=== PATIENT | male | born 1980 | race Caucasian/White ===

== ENCOUNTER → 2019-08-04 | Outpatient (CLI) | payer BC ==
[2019-08-04 19:24] LABS: Prolactin 6.5 ng/mL (2.1-17.7)
[2019-08-04 19:36] LABS: Follicle Stimulating Hormone <0.3 mIU/mL; Luteinizing Hormone <0.1 mIU/mL
== END | disposition home or self-care (01) ==
LOC: LABWHC1 14:26
PROVIDERS: ATTEND Urology
DX: N52.9 Male erectile dysfunction, unspecified (principal); E29.1 Testicular hypofunction
CPT/HCPCS: 36415; 83001; 83002; 84146; 84443

== ENCOUNTER 2021-01-10 16:47 | Emergency (ER) | payer BC, OTHER ==
[2021-01-10 17:04] VITALS: BP 130/75; PULSE 78; RESP 20; TEMP 97.9
[2021-01-10] MEDS ORDERED: PROPARACAINE 0.5% OPHTH DROPS 15 ML BTL RIGHT EYE STA (17:46)
[2021-01-10] MEDS ORDERED: FLUORESCEIN STRIPS 1 MG STRIP RIGHT EYE ONE (17:46)
--- NOTE | 2021-01-10 18:36 | ED ---
Eye Problem HPI - General Chief complaint: Eye Problems Stated complaint: [facility]-dirt/metal in eye Time Seen by Provider: 01/10/21 17:31 Source: patient Mode of arrival: ambulatory Limitations: no limitations - History of Present Illness Initial comments: Patient is a 40-year-old male presenting to the emergency Department with complaints of a possible foreign body in his right eye. Patient states he feels like something flew in it while he was at work today. It happened about an hour or 2 prior to arrival. Patient states he sometimes wears contacts but has not worn them the past few weeks. He denies any visual changes, no severe eye pain just some irritation. He has no further complaints at this time. - Related Data Previous Rx's Medication Instructions Recorded Erythromycin Ophth Oint [Romycin 1 applic RIGHT EYE QID #1 tube 01/10/21 Ophth Oint] Allergies Allergy/AdvReac Type Severity Reaction Status Date / Time No Known Allergies Allergy Verified 01/10/21 18:32 Review of Systems ROS Statement: Those systems with pertinent positive or pertinent negative responses have been documented in the HPI. ROS Other: All systems not noted in ROS Statement are negative. Past Medical History Past Medical History: No Reported History History of Any Multi-Drug Resistant Organisms: None Reported Past Surgical History: Hernia Repair Past Psychological History: No Psychological Hx Reported Smoking Status: Never smoker Past Alcohol Use History: None Reported Past Drug Use History: None Reported General Exam - General Exam Comments Initial Comments: GENERAL: Patient is well-developed and well-nourished. Patient is nontoxic and in no acute distress. HEAD: Atraumatic, normocephalic. EYES: Pupils equal round and reactive to light, extraocular movements intact, sclera anicteric, conjunctiva are normal. Eyelids were unremarkable. There is no foreign body visible on exam, fluorescein stain revealed no acute abnormality. ENT: Nares patent, oropharynx clear without exudates. Moist mucous membranes. NECK: Normal range of motion, supple without lymphadenopathy or JVD. LUNGS: Unlabored respirations. Breath sounds clear to auscultation bilaterally and equal. No wheezes rales or rhonchi. HEART: Regular rate and rhythm without murmurs, rubs or gallops. ABDOMEN: Soft, nontender, normoactive bowel sounds. No guarding, no rebound. No masses appreciated. : Deferred MUSCULOSKELETAL: Normal extremities with adequate strength and normal range of motion, no pitting or edema. No clubbing or cyanosis. NEUROLOGICAL: Patient is alert and oriented x 3. Symmetrical smile. Normal speech, normal gait. PSYCH: Normal mood, normal affect. SKIN: Warm, Dry, normal turgor, no rashes or lesions noted Limitations: no limitations Course Vital Signs 01/10/21 17:00 Temperature 97.9 F Pulse Rate 78 Respiratory 20 Rate Blood Pressure 130/75 O2 Sat by Pulse 96 Oximetry Medical Decision Making - Medical Decision Making Patient is a 40-year-old male here with complaints of possible foreign body of his right eye. His happened at work. Upon my examination, there is no obvious foreign body, fluorescein stain did not reveal any foreign body, no abrasions of the eye. Patient did have some relief with the proparacaine. I discussed with patient that I do not see evidence for an abrasion or foreign body at this time. I recommended following up with his eye doctor. He is stable for discharge. I will start him on erythromycin ointment for possibility of a small abrasion that I am not seeing today. Patient is in agreement this plan of care. Disposition Clinical Impression: Irritation of right eye Disposition: HOME SELF-CARE Condition: Stable Instructions (If sedation given, give patient instructions): Eye Foreign Body (ED) Additional Instructions: Please return to the Emergency Department if symptoms worsen or any other concerns. There is no visible foreign body on the eye at this time, recommend starting antibiotic ointment for possible small abrasion. Follow-up with your eye doctor in 1-3 days. Prescriptions: Erythromycin Ophth Oint [Romycin Ophth Oint] 1 applic RIGHT EYE QID #1 tube Is patient prescribed a controlled substance at d/c from ED?: No Referrals: Sai Ramirez MD [Primary Care Provider] - 1-2 days Time of Disposition: 18:35
== END 2021-01-10 18:42 | disposition home or self-care (01) ==
LOC: EC 16:47
DX: H57.89 Other specified disorders of eye and adnexa (principal)
CPT/HCPCS: 99283

== ENCOUNTER 2021-07-25 11:09 | Emergency (ER) | payer BC, OTHER ==
[2021-07-25 11:30] VITALS: RESP 18
[2021-07-25] MEDS ORDERED: LIDOCAINE 1% INJ 10MG/ML (20 ML MDV) SQ ONE (13:13)
--- NOTE | 2021-07-25 14:01 | ED ---
Head Injury HPI - General Chief complaint: Head Injury Stated complaint: [facility]- head injury Time Seen by Provider: 07/25/21 12:56 Source: patient, RN notes reviewed Mode of arrival: ambulatory Limitations: no limitations - History of Present Illness Initial comments: She is a 40-year-old male that presents to the emergency department with a 4 cm head laceration. He notes he was grinding at work when the abrasive grinder follows hands and told him in the forehead. Patient notes he did not lose consciousness. Patient notes that he was seen at at bedtime and was referred here for laceration repair. Patient denied any other issues or complaints. He notes he is up-to-date on his tetanus shot. He denied chest pain first breath headache nausea vomiting diarrhea constipation fever fatigue chills change in vision blurry vision. - Related Data Home Medications Medication Instructions Recorded Confirmed Benzonatate [Tessalon Perles] 100 mg PO Q6H 07/25/21 07/25/21 Dm/Acetaminophen/Doxylamine [Vicks 30 ml PO Q6H PRN 07/25/21 07/25/21 Nyquil Cold-Flu Liquid] Previous Rx's Medication Instructions Recorded Cephalexin [Keflex] 500 mg PO Q6HR #40 cap 07/25/21 Allergies/Adverse reactions: Allergies Allergy/AdvReac Type Severity Reaction Status Date / Time No Known Allergies Allergy Verified 07/25/21 13:24 Review of Systems ROS Statement: Those systems with pertinent positive or pertinent negative responses have been documented in the HPI. ROS Other: All systems not noted in ROS Statement are negative. Past Medical History Past Medical History: No Reported History History of Any Multi-Drug Resistant Organisms: None Reported Past Surgical History: Hernia Repair Past Psychological History: No Psychological Hx Reported Smoking Status: Never smoker Past Alcohol Use History: None Reported Past Drug Use History: None Reported General Exam Limitations: no limitations General appearance: alert, in no apparent distress Head exam: Present: normocephalic, normal inspection. Absent: atraumatic (4 cm laceration to middle forehead. Minimal bleeding. Margins well approximated.) Eye exam: Present: normal appearance, PERRL, EOMI. Absent: scleral icterus, conjunctival injection, periorbital swelling ENT exam: Present: normal exam, mucous membranes moist Neck exam: Present: normal inspection Respiratory exam: Present: normal lung sounds bilaterally. Absent: respiratory distress, wheezes, rales, rhonchi, stridor Cardiovascular Exam: Present: regular rate, normal rhythm, normal heart sounds. Absent: systolic murmur, diastolic murmur, rubs, gallop, clicks GI/Abdominal exam: Present: soft, normal bowel sounds. Absent: distended, tenderness, guarding, rebound, rigid Extremities exam: Present: normal inspection, full ROM, normal capillary refill. Absent: tenderness, pedal edema, joint swelling, calf tenderness Neurological exam: Present: alert, oriented X3 Psychiatric exam: Present: normal affect, normal mood Skin exam: Present: warm, dry, intact, normal color. Absent: rash Course Vital Signs 07/25/21 11:27 Temperature 98.4 F Pulse Rate 79 Respiratory 18 Rate Blood Pressure 145/81 O2 Sat by Pulse 97 Oximetry Procedures - Laceration Laceration #1 Consent Obtained: verbal consent Indication: laceration Site: face (Forehead) Size (cm): 4 Description: linear Depth: simple, single layer Anesthetic Used: lidocaine 1% Anesthesia Technique: local infiltration Amount (mls): 5 Pre-repair: irrigated extensively Type of Sutures: nylon Size of Sutures: 5-0 Number of Sutures: 5 Technique: simple, interrupted Patient Tolerated Procedure: well, no complications Medical Decision Making - Medical Decision Making 40-year-old male with laceration of forehead from a abrasive grinder accident work. Lidocaine ordered. Patient is up-to-date on tetanus. Antibiotics sent to pharmacy. Patient tolerated sutures well. Case discussed with Dr. Cohen, patient discharge home. Disposition Clinical Impression: Laceration Disposition: HOME SELF-CARE Condition: Stable Instructions (If sedation given, give patient instructions): Laceration (ED), Care For Your Stitches (ED) Additional Instructions: Please return to the Emergency Department if symptoms worsen or any other concerns. Follow-up with primary care 1-2 days. Please return in 7-10 days to have sutures removed. Keep area clean and dry. Prescriptions: Cephalexin [Keflex] 500 mg PO Q6HR #40 cap Is patient prescribed a controlled substance at d/c from ED?: No Referrals: Sai Ramirez MD [Primary Care Provider] - 1-2 days Time of Disposition: 14:01
[2021-07-25 14:17] VITALS: TEMP 97.8
[2021-07-25 14:21] VITALS: BP 115/78; PULSE 73
== END 2021-07-25 14:15 | disposition home or self-care (01) ==
LOC: EC 11:09
DX: S01.81XA Laceration without foreign body of other part of head, initial encounter (principal); W29.8XXA Contact with other powered hand tools and household machinery, initial encounter; Y92.69 Other specified industrial and construction area as the place of occurrence of the external cause; Y99.0 Civilian activity done for income or pay
CPT/HCPCS: 99282; 12013; J2001

== ENCOUNTER 2023-08-31 19:24 | Emergency (ER) | payer OTHER ==
[2023-08-31] MEDS ORDERED: methylPREDNISolone SOD SUCCI 125 MG/2 ML VIAL IM ONE (19:30)
--- NOTE | 2023-08-31 19:30 | ED ---
General Adult HPI - General Source: patient, RN notes reviewed Mode of arrival: ambulatory Limitations: no limitations <Antonia Nash - Last Filed: 08/31/23 19:30> <Justin Holliday - Last Filed: 08/31/23 23:10> - General Chief complaint: Allergic Reaction Stated complaint: Allergic Reaction Time Seen by Provider: 08/31/23 19:30 - History of Present Illness Initial comments: 43 male presents the emergency department with a chief possible ALLERGIC reaction. Patient reports having shrimp approximately 45 minutes prior to arrival. He reports scratchiness and vomiting. He did take Benadryl prior to arrival (Antonia Nash) 43-year-old male with a prior history of shellfish ALLERGY who apparently shrimp and crab prior to arrival and started developing difficulty swallowing he also took some oral Benadryl prior to coming here he has been vomiting since. He started the before I saw him received IM Solu-Medrol 125 mg. Other than difficulty swallowing and talking he has no other complaints no rash no overt shortness breath fevers chills sweats. (Justin Holliday) - Related Data Home Medications Medication Instructions Recorded Confirmed Benzonatate [Tessalon Perles] 100 mg PO Q6H 07/25/21 07/25/21 Dm/Acetaminophen/Doxylamine [Vicks 30 ml PO Q6H PRN 07/25/21 07/25/21 Nyquil Cold-Flu Liquid] Previous Rx's Medication Instructions Recorded Cephalexin [Keflex] 500 mg PO Q6HR #40 cap 07/25/21 Ibuprofen [Motrin] 800 mg PO Q8HR PRN #30 tab 03/15/23 predniSONE [Deltasone] 20 mg PO BID #10 tab 08/31/23 Allergies Allergy/AdvReac Type Severity Reaction Status Date / Time bee venom protein (honey bee) Allergy Unknown Verified 08/31/23 19:27 Review of Systems ROS Other: All systems not noted in ROS Statement are negative. <Antonia Nash - Last Filed: 08/31/23 19:30> ROS Other: All systems not noted in ROS Statement are negative. <Justin Holliday - Last Filed: 08/31/23 23:10> ROS Statement: Those systems with pertinent positive or pertinent negative responses have been documented in the HPI. Past Medical History Past Medical History: No Reported History History of Any Multi-Drug Resistant Organisms: None Reported Past Surgical History: Hernia Repair Past Psychological History: No Psychological Hx Reported Smoking Status: Never smoker Past Alcohol Use History: None Reported Past Drug Use History: None Reported <Antonia Nash - Last Filed: 08/31/23 19:30> General Exam Limitations: no limitations <Antonia Nash - Last Filed: 08/31/23 19:30> General appearance: alert, anxious Head exam: Present: atraumatic, normocephalic, normal inspection Eye exam: Present: normal appearance, PERRL, EOMI. Absent: scleral icterus, conjunctival injection, periorbital swelling ENT exam: Present: other (Some posterior pharyngeal edema noted uvula is midline. He does demonstrate some difficulty with speech) Neck exam: Present: normal inspection, other (Stridor JVD or bruits). Absent: tenderness, meningismus, lymphadenopathy Respiratory exam: Present: normal lung sounds bilaterally. Absent: respiratory distress, wheezes, rales, rhonchi, stridor Cardiovascular Exam: Present: regular rate, normal rhythm, normal heart sounds. Absent: systolic murmur, diastolic murmur, rubs, gallop, clicks GI/Abdominal exam: Present: soft, normal bowel sounds. Absent: distended, tenderness, guarding, rebound, rigid Extremities exam: Present: normal inspection, full ROM, normal capillary refill. Absent: tenderness, pedal edema, joint swelling, calf tenderness Back exam: Present: normal inspection Neurological exam: Present: alert, oriented X3, CN II-XII intact Psychiatric exam: Present: normal affect, normal mood Skin exam: Present: warm, dry, intact, normal color. Absent: rash <Justin Holliday - Last Filed: 08/31/23 23:10> - General Exam Comments Initial Comments: Visual Physical Exam Vital signs reviewed General: Well-appearing, nontoxic, no acute distress. Head: Normocephalic, atraumatic Eyes: PERRLA, EOMI ENT: Airway patent Chest: Nonlabored breathing Skin: No visual rash, normal skin tone Neuro: Alert and oriented 3 Musculoskeletal: No gross abnormalities (Antonia Nash) Is a well-developed well-nourished awake alert oriented 3 male he is demonstrating some distress with difficulty with speech and swallowing. No overt drooling however no audible wheezing no rashes demonstrated at this time (MgJustin) Course <Justin Holliday - Last Filed: 08/31/23 23:10> Vital Signs 08/31/23 08/31/23 19:27 21:58 Temperature 98.2 F Pulse Rate 69 72 Respiratory 18 18 Rate Blood Pressure 144/82 132/83 O2 Sat by Pulse 97 97 Oximetry - Reevaluation(s) Reevaluation #1: 08/31/23 20:01 Patient reexamination demonstrated no worsening of his situation he states he is awake and alert. (MgJustin) Reevaluation #2: 08/31/23 21:33 I did reevaluate patient twice so far he states he is not feeling much better however his voices sound much improved. No stridor no JVD no bruits no wheezing. He still nauseated and has vomited once. (MgJustin) Medical Decision Making <Antonia Nash - Last Filed: 08/31/23 19:30> <MgJustin - Last Filed: 08/31/23 23:10> - Medical Decision Making I performed the quick note portion of this exam, verbal signature Antonia Nash PA-C (Antonia Nash) I did reevaluate patient on multiple occasions he was still feeling somewhat nauseated however reevaluation his oropharynx appears much improved his voice appears and sounds much improved no stridor JVD or bruits no wheezing. Patient will be discharged home he was cautioned about drinking or eating hot foods for the next 24 hours or so. He was encouraged to drink cool or cold beverages. He'll be discharged with a prescription for prednisone and we did discuss getting Benadryl and Pepcid [id number]. He is in agreement with this. Was pt. sent in by a medical professional or institution ([facility], ALLERGIST IMMUNOLOGIST, urgent care, hospital, or halfway...) When possible be specific @ -[No] Did you speak to anyone other than the patient for history (EMS, parent, family, police, friend...)? What history was obtained from this source @ -[Zenia] Did you review nursing and triage notes (agree or disagree)? Why? @ -[I reviewed and agree with nursing and triage notes] Were old charts reviewed (outside hosp., previous admission, EMS record, old EKG, old radiological studies, urgent care reports/EKG's, halfway records)? Report findings @ -[No old charts were reviewed] Differential Diagnosis (chest pain, altered mental status, abdominal pain women, abdominal pain men, vaginal bleeding, weakness, fever, dyspnea, syncope, headache, dizziness, GI bleed, back pain, seizure, CVA, palpatations, mental health, musculoskeletal)? @ -[Sea food ALLERGY] EKG interpreted by me (3pts min.). @ -[Not done] X-rays interpreted by me (1pt min.). @ -[None done] CT interpreted by me (1pt min.). @ -[None done] U/S interpreted by me (1pt. min.). @ -[None done] What testing was considered but not performed or refused? (CT, X-rays, U/S, labs)? Why? @ -[None] What meds were considered but not given or refused? Why? @ -[None] Did you discuss the management of the patient with other professionals (professionals i.e. , PA, ALLERGIST IMMUNOLOGIST, lab, RT, psych nurse, manager social services, poultry farmer, teacher, sea air land officer, case work aide)? Give summary @ -[No] Was smoking cessation discussed for >3mins.? @ -[No] Was critical care preformed (if so, how long)? @ -[No] Were there social determinants of health that impacted care today? How? (Homelessness, low income, unemployed, alcoholism, drug addiction, transportation, low edu. Level, literacy, decrease access to med. care, halfway, rehab)? @ -[No] Was there de-escalation of care discussed even if they declined (Discuss DNR or withdrawal of care, Hospice)? DNR status @ -[No] What co-morbidities impacted this encounter? (DM, HTN, Smoking, COPD, CAD, Cancer, CVA, ARF, Chemo, Hep., AIDS, mental health diagnosis, sleep apnea, morbid obesity)? @ -Prior shellfish ALLERGIES] Was patient admitted / discharged? Hospital course, mention meds given and route, prescriptions, significant lab abnormalities, going to OR and other pertinent info. @ -[hospital course patient was discharged home with prescriptions for prednisone and [id number] Benadryl and Pepcid.] Undiagnosed new problem with uncertain prognosis? @ -[No] Drug Therapy requiring intensive monitoring for toxicity (Heparin, Nitro, Insulin, Cardizem)? @ -[No] Were any procedures done? @ -[No] Diagnosis/symptom? @ -[Acute ALLERGIC reaction] Acute, or Chronic, or Acute on Chronic? @ -[Acute] Uncomplicated (without systemic symptoms) or Complicated (systemic symptoms)? @ -[default] Side effects of treatment? @ -[No] Exacerbation, Progression, or Severe Exacerbation? @ -[Transformation] Poses a threat to life or bodily function? How? (Chest pain, [place], [place], pneumonia, PE, COPD, DKA, ARF, appy, cholecystitis, CVA, Diverticulitis, Homicidal, Suicidal, threat to staff... and all critical care pts) @ -[Acute ALLERGIC reaction] (Justin Holliday) Disposition <Antonia Nash - Last Filed: 08/31/23 19:30> Is patient prescribed a controlled substance at d/c from ED?: No Decision Date: 08/31/23 Decision Time: 23:10 <Justin Holliday - Last Filed: 08/31/23 23:10> Clinical Impression: Acute allergic reaction, Angioedema Disposition: HOME SELF-CARE Condition: Good Instructions (If sedation given, give patient instructions): Food Allergy (ED) Additional Instructions: [id number] Benadryl 25 mg every 6 hours as needed, [id number] Pepcid 20 mg twice a day as needed. No hot food or beverages for the next 24 hours return if any problems with recurrent symptoms otherwise follow-up with her doctor. Prescriptions: predniSONE [Deltasone] 20 mg PO BID #10 tab Referrals: None,Stated [Primary Care Provider] - 1-2 days
[2023-08-31 19:45] VITALS: RESP 18
[2023-08-31] MEDS ORDERED: diphenhydrAMINE 50 MG/ML 1 ML VIAL IVP STA (19:57)
[2023-08-31] MEDS ORDERED: ONDANSETRON 4 MG/2 ML VIAL IVP STA (19:57)
[2023-08-31] MEDS ORDERED: FAMOTIDINE 20 MG/2 ML VIAL IV STA ×2 (19:57→21:32)
[2023-08-31] MEDS ORDERED: methylPREDNISolone SOD SUCCI 125 MG/2 ML VIAL IV STA ×2 (21:32→23:03)
[2023-08-31] MEDS ORDERED: METOCLOPRAMIDE 5 MG/ML 2 ML VIAL IVP STA (21:32)
[2023-09-01 00:25] VITALS: BP 128/76; PULSE 85; TEMP 98
== END 2023-08-31 23:54 | disposition home or self-care (01) ==
LOC: EC 19:24
DX: T78.3XXA Angioneurotic edema, initial encounter (principal); Z91.030 Bee allergy status
CPT/HCPCS: 99283; 96372; 96374; 96375 ×4; 96376 ×2; J1200; J2765; J2930; J2405; J3490

== ENCOUNTER 2023-09-11 09:44 | Emergency (ER) | payer BC, OTHER ==
--- NOTE | 2023-09-11 09:58 | ED ---
ENT HPI - General Chief complaint: ENT Stated complaint: Ear Pain Time Seen by Provider: 09/11/23 09:57 Source: patient, RN notes reviewed Mode of arrival: ambulatory Limitations: no limitations - History of Present Illness Initial comments: 43-year-old male presents emergency Department with chief complaint of left ear pain. Patient states that very sensitive, hurts to touch. Patient doesn't drainage no trauma patient offers no other complaints. - Related Data Home Medications Medication Instructions Recorded Confirmed Benzonatate [Tessalon Perles] 100 mg PO Q6H 07/25/21 07/25/21 Dm/Acetaminophen/Doxylamine [Vicks 30 ml PO Q6H PRN 07/25/21 07/25/21 Nyquil Cold-Flu Liquid] Previous Rx's Medication Instructions Recorded Cephalexin [Keflex] 500 mg PO Q6HR #40 cap 07/25/21 Ibuprofen [Motrin] 800 mg PO Q8HR PRN #30 tab 03/15/23 predniSONE [Deltasone] 20 mg PO BID #10 tab 08/31/23 Amoxic-Pot Clav 875-125Mg 1 tab PO Q12HR #20 tab 09/11/23 [Augmentin 875-125] Allergies Allergy/AdvReac Type Severity Reaction Status Date / Time bee venom protein (honey bee) Allergy Unknown Verified 09/11/23 09:51 shellfish derived [Shellfish] Allergy Anaphylaxis Verified 09/11/23 09:51 Review of Systems ROS Statement: Those systems with pertinent positive or pertinent negative responses have been documented in the HPI. ROS Other: All systems not noted in ROS Statement are negative. Past Medical History Past Medical History: No Reported History History of Any Multi-Drug Resistant Organisms: None Reported Past Surgical History: Hernia Repair Additional Past Surgical History / Comment(s): wisdom teeth, legaments right leg. Past Psychological History: No Psychological Hx Reported Smoking Status: Never smoker Past Alcohol Use History: Occasional Past Drug Use History: None Reported General Exam Limitations: no limitations General appearance: alert, in no apparent distress Head exam: Present: atraumatic, normocephalic, normal inspection Eye exam: Present: normal appearance, PERRL, EOMI. Absent: scleral icterus, conjunctival injection, periorbital swelling ENT exam: Present: normal oropharynx, mucous membranes moist. Absent: normal exam, TM's normal bilaterally (Left erythematous) Neck exam: Present: normal inspection, full ROM. Absent: tenderness, meningismus, lymphadenopathy Respiratory exam: Present: normal lung sounds bilaterally. Absent: respiratory distress, wheezes, rales, rhonchi, stridor Cardiovascular Exam: Present: regular rate, normal rhythm, normal heart sounds. Absent: systolic murmur, diastolic murmur, rubs, gallop, clicks Course Vital Signs 09/11/23 09:48 Temperature 98 F Pulse Rate 82 Respiratory 18 Rate Blood Pressure 136/81 O2 Sat by Pulse 98 Oximetry Medical Decision Making - Medical Decision Making Was pt. sent in by a medical professional or institution (, [facility], [facility], urgent care, hospital, or fdc...) When possible be specific @ -No Did you speak to anyone other than the patient for history (EMS, parent, family, police, friend...)? What history was obtained from this source @ -No Did you review nursing and triage notes (agree or disagree)? Why? @ -I reviewed and agree with nursing and triage notes Were old charts reviewed (outside hosp., previous admission, EMS record, old EKG, old radiological studies, urgent care reports/EKG's, fdc records)? Report findings @ -No old charts were reviewed Differential Diagnosis (chest pain, altered mental status, abdominal pain women, abdominal pain men, vaginal bleeding, weakness, fever, dyspnea, syncope, headache, dizziness, GI bleed, back pain, seizure, CVA, palpatations, mental health, musculoskeletal)? @ -[Otitis media, otitis externa EKG interpreted by me (3pts min.). @ -As above X-rays interpreted by me (1pt min.). @ -None done CT interpreted by me (1pt min.). @ -None done U/S interpreted by me (1pt. min.). @ -None done What testing was considered but not performed or refused? (CT, X-rays, U/S, labs)? Why? @ -None What meds were considered but not given or refused? Why? @ -None Did you discuss the management of the patient with other professionals (professionals i.e. [facility] Gentile, [facility], lab, RT, psych nurse, social services analyst, head men's tennis coach, teacher, custom protection officer, bottle caser)? Give summary @ -No Was smoking cessation discussed for >3mins.? @ -No Was critical care preformed (if so, how long)? @ -No Were there social determinants of health that impacted care today? How? (Homelessness, low income, unemployed, alcoholism, drug addiction, transportat ion, low edu. Level, literacy, decrease access to med. care, half-way, rehab)? @ -No Was there de-escalation of care discussed even if they declined (Discuss DNR or withdrawal of care, Hospice)? DNR status @ -No What co-morbidities impacted this encounter? (DM, HTN, Smoking, COPD, CAD, Cancer, CVA, ARF, Chemo, Hep., AIDS, mental health diagnosis, sleep apnea, morbid obesity)? @ -None Was patient admitted / discharged? Hospital course, mention meds given and route, prescriptions, significant lab abnormalities, going to OR and other pertinent info. @ -Discharge patient has left otitis media was started on oral antibiotics return parameters discussed. Undiagnosed new problem with uncertain prognosis? @ -No Drug Therapy requiring intensive monitoring for toxicity (Heparin, Nitro, Insulin, Cardizem)? @ -No Were any procedures done? @ -No Diagnosis/symptom? @ -Otitis media Acute, or Chronic, or Acute on Chronic? @ -[Acute Uncomplicated (without systemic symptoms) or Complicated (systemic symptoms)? @ -[Uncomplicated Side effects of treatment? @ -No Exacerbation, Progression, or Severe Exacerbation? @ -No Poses a threat to life or bodily function? How? (Chest pain, [place], DC, pneumonia, PE, COPD, DKA, ARF, appy, cholecystitis, CVA, Diverticulitis, Homicidal, Suicidal, threat to staff... and all critical care pts) @ -No Disposition Clinical Impression: Otitis media Disposition: HOME SELF-CARE Condition: Stable Instructions (If sedation given, give patient instructions): Earache (ED) Additional Instructions: Please return to the Emergency Department if symptoms worsen or any other concerns. Prescriptions: Amoxic-Pot Clav 875-125Mg [Augmentin 875-125] 1 tab PO Q12HR #20 tab Is patient prescribed a controlled substance at d/c from ED?: No Referrals: None,Stated [Primary Care Provider] - 1-2 days Time of Disposition: 09:58
[2023-09-11 10:25] VITALS: BP 136/81; PULSE 82; RESP 18; TEMP 98
== END 2023-09-11 10:16 | disposition home or self-care (01) ==
LOC: EC 09:44
DX: H66.92 Otitis media, unspecified, left ear (principal); Z91.030 Bee allergy status; Z91.013 Allergy to seafood
CPT/HCPCS: 99282

== ENCOUNTER → 2024-09-16 | Outpatient (CLI) | payer OTHER ==
[2024-09-16 15:43] VITALS: BP 123/75; PULSE 78; RESP 16; TEMP 97.7
--- NOTE | 2024-09-16 16:43 | P.SLEEP ---
History of Present Illness DATE: 09/16/2024 CONSULTATION/NEW PATIENT EVALUATION HISTORY OF PRESENT ILLNESS/SLEEP-WAKE EVALUATION: 44-year-old gentleman had b een evaluated in the sleep center for possible obstructive sleep apnea hypopnea syndrome. Patient had the home sleep apnea test which was done by another institution several months ago and it was negative for obstructive sleep apnea hypopnea syndrome. SLEEP SCHEDULE: Usually sleep schedule from 12:30 PM to 7:30 AM on working days and from 2 AM until 9:30 AM on weekend. FALLING ASLEEP: No problems with falling asleep. DURING SLEEP: Patient snores and has witnessed episodes of stop breathing during the sleep by his mother. Positive history of restless leg symptoms patient wakes up from sleep once with nocturia no history of hypnogogical hallucinations, sleep paralysis, or cataplexy. DURING THE DAY/WAKE STATE: In the morning patient wake up tired, falling asleep during the day. [place] sleepiness scale is 8. Usually patient does not take naps. PAST MEDICAL HISTORY: Depression, hyperlipidemia. PAST SURGICAL HISTORY: Tonsillectomy, right knee surgery. MEDICATIONS: Lipitor, medication for depression patient does not remember the name. SOCIAL HISTORY: Please see below. FAMILY HISTORY: Please see below. REVIEW OF SYSTEMS: Snoring, awakenings from sleep, sleepiness during the day. No fevers. No double vision. No recent chest pain. No shortness of breath. No abdominal pain. No bleeding episodes. No blood in urine. No seizure episodes. PHYSICAL EXAMINATION: GENERAL: A pleasant patient without any distress. VITAL SIGNS: Please see below, weight 232 pounds, BMI 30.0. HEENT: PERRLA, EOMI. Evaluation of oropharynx showed tongue protrudes midline, low position of soft palate Mallampati 4. NECK: Supple. No JVD. Thyroid is not palpable. 17-1/4 inches in circumference. LUNGS: Clear to percussion and to auscultation. Good air exchange. No wheezing or rhonchi. HEART: S1, S2 regular. No murmurs, gallops or rubs. ABDOMEN: Soft and nontender. Bowel sounds are present. No organomegaly appreciated. EXTREMITIES: No clubbing or cyanosis. MAINTENANCE SCHEDULER: Awake, alert, and oriented x3. Cranial nerves 2 to 7 intact. There is no fasciculation or atrophy noted. No focal deficits observed. ASSESSMENT: 1. Snoring, witnessed episodes of stop breathing during the sleep, extremely low position of soft palate, retrognathia 3 mm, wide neck 17-1/4 inches in circumference, episodes of sleepiness. Obstructive sleep apnea hypopnea syndrome. 2. Depression. 3. Hyperlipidemia. 4. Restless leg symptoms. 5 status post right knee surgery. 6 . Status post tonsillectomy. 7. Mild obesity by body mass index 30. PLAN: 1. Polysomnography for evaluation of patient's breathing during sleep. 2. Following plan after reading sleep study. 3. Preferable position during sleep on the side. 4. No driving if patient feels any sleepiness. Patient is aware of civil and criminal liability for unsafe driving. 5. Sleep hygiene with regular sleep time for at least 7.5-8 hours. 6. Watching weight. Thank you very much for referring this patient for consultation. Sincerely, Gabriel Salazar MD, PhD, FAASM. Diplomat of [employer], Sleep Medicine Board by [employer] [facility] [place] cc: Delia CHAMPAGNE Past Medical History Past Medical History: No Reported History, Hyperlipidemia History of Any Multi-Drug Resistant Organisms: None Reported Past Surgical History: Hernia Repair, Orthopedic Surgery, Tonsillectomy Additional Past Surgical History / Comment(s): wisdom teeth, legaments right leg. Past Anesthesia/Blood Transfusion Reactions: No Reported Reaction Past Psychological History: Depression Smoking Status: Never smoker Past Alcohol Use History: Occasional Past Drug Use History: None Reported - Past Family History Father Family Medical History: Diabetes Mellitus, Sleep Apnea/CPAP/BIPAP Additional Family Medical History / Comment(s): snoring Mother Additional Family Medical History / Comment(s): snoring, sleep apnea? Medications and Allergies Home Medications Medication Instructions Recorded Confirmed Type Benzonatate [Tessalon Perles] 100 mg PO Q6H 07/25/21 07/25/21 History Cephalexin [Keflex] 500 mg PO Q6HR #40 cap 07/25/21 Rx Dm/Acetaminophen/Doxylamine [Vicks 30 ml PO Q6H PRN 07/25/21 07/25/21 History Nyquil Cold-Flu Liquid] Ibuprofen [Motrin] 800 mg PO Q8HR PRN #30 tab 03/15/23 Rx predniSONE [Deltasone] 20 mg PO BID #10 tab 08/31/23 Rx Amoxic-Pot Clav 875-125Mg 1 tab PO Q12HR #20 tab 09/11/23 Rx [Augmentin 875-125] Allergies Allergy/AdvReac Type Severity Reaction Status Date / Time bee venom protein (honey bee) Allergy Unknown Verified 09/11/23 09:51 shellfish derived [Shellfish] Allergy Anaphylaxis Verified 09/11/23 09:51 Physical Exam Vitals: Vital Signs Temp Pulse Resp BP Pulse Ox 09/16/24 15:42 97.7 F 78 16 123/75 97 Intake and Output 09/16/24 09/16/24 09/16/24 06:59 14:59 22:59 Other: Weight 105.233 kg Sleep Note - Sleep Data ESS Total: 8 - Sleep Note Sleep Note: Temperature: 97.7 F Pulse Rate: 78 Respiratory Rate: 16 Blood Pressure: 123/75 SpO2: 97 Height: 6 ft 1.7 in Weight: 105.233 kg BMI: Neck Circumference: 17.2
== END ==
LOC: 3 N SLEEP 15:25
PROVIDERS: ATTEND Internal Medicine
DX: G47.33 Obstructive sleep apnea (adult) (pediatric) (principal); R06.83 Snoring; F32.A Depression, unspecified; G25.81 Restless legs syndrome; E03.9 Hypothyroidism, unspecified; E78.5 Hyperlipidemia, unspecified; Z96.651 Presence of right artificial knee joint; Z48.89 Encounter for other specified surgical aftercare; Z91.030 Bee allergy status; Z91.013 Allergy to seafood
CPT/HCPCS: 99211